=== PATIENT | female | born 1935 | race Caucasian/White ===

== ENCOUNTER → 2016-07-15 | Outpatient (CLI) | payer MEDICARE | END | disposition home or self-care (01) | LOC: GMAM 12:25 | PROVIDERS: ATTEND Family Medicine | DX: E53.8 Deficiency of other specified B group vitamins (principal); E04.1 Nontoxic single thyroid nodule; R31.21 Asymptomatic microscopic hematuria ==

== ENCOUNTER → 2016-09-16 | Outpatient (CLI) | payer MEDICARE ==
--- NOTE | 2016-09-19 11:26 | US ---
EXAM DESCRIPTION: Ultrasound thyroid CLINICAL HISTORY: THYROID NODULE COMPARISON: February 16, 2011 TECHNIQUE: Sonographic images of the thyroid are obtained. FINDINGS: Right lobe thyroid measures 3.3 x 1.4 x 1.6 cm. The primarily cystic 1.2 cm nodule in the right lobe seen on previous exam is not identified on today's exam. The isthmus measures 1.9 mm. The left lobe measures 3.3 x 1.4 x 1.3 cm. There is a 5 x 3 x 4 mm well-circumscribed anechoic cyst of the midpole left lobe thyroid. This was not seen on previous exam. The hyperechoic solid nodule in the left lobe seen on previous exam is not identified on today's exam. IMPRESSION: Selene millimeters cystic lesion seen in the right lobe of the thyroid on previous exam is presumed resolved and not seen on today's exam. Small simple cyst of the left lobe thyroid is seen on today's exam. No further follow-up of this finding is recommended. Electronically signed by: Theodore Lomas MD 09/19/2016 11:25 AM CDT
== END ==
LOC: US 10:51
PROVIDERS: ATTEND Family Medicine
DX: E04.1 Nontoxic single thyroid nodule (principal)

== ENCOUNTER → 2017-02-02 | Outpatient (CLI) | payer MEDICARE | END | disposition home or self-care (01) | LOC: MAMMO 10:14 | PROVIDERS: ATTEND Family Medicine | DX: Z12.31 Encounter for screening mammogram for malignant neoplasm of breast (principal) | CPT/HCPCS: 77063; G0202 ==

== ENCOUNTER → 2017-03-28 | Outpatient (CLI) | payer MEDICARE | LOC: GMAM 09:36 | PROVIDERS: ATTEND Family Medicine | DX: E04.1 Nontoxic single thyroid nodule (principal); E53.8 Deficiency of other specified B group vitamins; E21.0 Primary hyperparathyroidism ==

== ENCOUNTER → 2017-04-21 | Outpatient (CLI) | payer MEDICARE | LOC: LAB.O 10:29 | PROVIDERS: ATTEND Family Medicine | DX: E55.9 Vitamin D deficiency, unspecified (principal) ==

== ENCOUNTER → 2017-10-23 | Outpatient (CLI) | payer MEDICARE | LOC: GMAM 09:10 | PROVIDERS: ATTEND Family Medicine | DX: E04.1 Nontoxic single thyroid nodule (principal); E53.8 Deficiency of other specified B group vitamins; E21.0 Primary hyperparathyroidism ==

== ENCOUNTER → 2017-11-01 | Outpatient (CLI) | payer MEDICARE ==
--- NOTE | 2017-11-01 15:55 | MRI ---
EXAM DESCRIPTION: Knee,Left: MRI. CLINICAL HISTORY: KNEE PAIN COMPARISON: None. TECHNIQUE: Multiplanar, high-field MRI, multiple sequences, without contrast: Left knee. FINDINGS: Increased signal in the posterior horn medial meniscus. Linear cartilaginous and subchondral defect in the anterior medial femoral condyle. Smaller subchondral signal abnormality more posteriorly and medially in the medial tibial plateau. Chondromalacia in the lateral compartment. Small effusions medial and lateral. Minimal fluid posterior medial soft tissues. Normal signal in the ACL. Laxity and intermediate signal in the PCL superior segment inserting on the posterior femur. Medial collateral ligament and elements of the lateral collateral ligament complex are unremarkable. Normal signal in the distal iliotibial band. Minimal suprapatellar effusion. Intermediate/bright signal in the distal quadriceps tendon. Edema anterior to the patellar tendon and patellar insertion on the tibia. Medial and lateral skin patellar soft tissue restraints are unremarkable. IMPRESSION: 1. Grade 3 osteochondral lesion on the medial tibial plateau left knee. Grade 3-4 osteochondral lesion more anteriorly and anterolaterally in the medial femoral condyle. Minimal degeneration posterior horn medial meniscus. Medial compartment effusion. Effusion also on the lateral compartment. Mild chondromalacia. 2. Degeneration versus mild sprain of the femoral segment of the posterior cruciate ligament. Small posterior medial Kapoor cyst. 3. Minimal suprapatellar effusion. Degenerative signal versus mild strain in the distal quadriceps tendon. Prepatellar bursitis and soft tissue edema anterior to the patellar tendon insertion on the tibia. Electronically signed by: Raul Josue MD 11/01/2017 3:53 PM CDT
== END ==
LOC: MRI 10:00
PROVIDERS: ATTEND Family Medicine
DX: M95.8 Other specified acquired deformities of musculoskeletal system (principal); M71.22 Synovial cyst of popliteal space [Baker], left knee; M25.462 Effusion, left knee; M70.52 Other bursitis of knee, left knee

== ENCOUNTER → 2018-03-21 | Outpatient (CLI) | payer MEDICARE | LOC: GMAM 16:53 | PROVIDERS: ATTEND Family Medicine | DX: E53.8 Deficiency of other specified B group vitamins (principal); E21.0 Primary hyperparathyroidism; E55.9 Vitamin D deficiency, unspecified; I10 Essential (primary) hypertension ==

== ENCOUNTER → 2018-03-26 | Outpatient (CLI) | payer MEDICARE ==
--- NOTE | 2018-03-27 15:08 | MAM ---
EXAM DESCRIPTION: 3D Screening BILATERAL : Digital Mammography. CLINICAL HISTORY: 82 years Female SCREENING . No complaints. No personal history of breast cancer. Mother with breast cancer. Lifetime risk of developing breast cancer (Tyrer-Cuzick model)(%): . 5.6. COMPARISON: Digital screening 3-D breast tomosynthesis bilaterally 02/02/2017. TECHNIQUE: Bilateral CC and MLO projection full-field images, digital tomosynthesis mammographic technique. Bilateral digital 2-D full-field MLO images. CAD not available for tomosynthesis or 2-D images. FINDINGS: The breast parenchymal density pattern is: Scattered areas of fibroglandular density. No skin thickening or nipple retraction. Bilateral solitary microcalcifications. Bilateral vascular calcifications. No new focal, stellate mass or density, focal asymmetry , and no suspicious microcalcifications bilaterally. Stable mammograms compared to prior study. IMPRESSION: Benign exam. BIRAD CATEGORY: 2 BENIGN FINDINGS. RECOMMENDATIONS: FOLLOW UP: Routine digital bilateral mammographic screening, one year interval from March 2018. Written communication explaining the IMPRESSION and follow-up, will be mailed to the patient and referring health care provider. According to the [employer], yearly mammograms are recommended starting at age 40 and continuing as long as a woman is in good health. Any breast change noted on a breast self-exam should be reported promptly to the patient's healthcare provider. Breast MRI is recommended for women with an approximately 20-25% or greater lifetime risk of breast cancer, including women with a strong family history of breast or ovarian cancer and women who have been treated for Hodgkin's disease. A negative mammographic report should not delay tissue diagnosis in patients with significant clinical history or physical findings. Extremely dense breast tissue limits the sensitivity of digital mammography. 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
== END ==
LOC: MAMMO 10:30
PROVIDERS: ATTEND Family Medicine
DX: Z12.31 Encounter for screening mammogram for malignant neoplasm of breast (principal)

== ENCOUNTER → 2018-07-27 | Outpatient (CLI) | payer MEDICARE | LOC: MRI 11:00 | PROVIDERS: ATTEND Family Medicine | DX: M51.16 Intervertebral disc disorders with radiculopathy, lumbar region (principal) ==

== ENCOUNTER → 2018-08-01 | Outpatient (CLI) | payer MEDICARE ==
--- NOTE | 2018-08-01 11:00 | MRI ---
MRI right hip without contrast INDICATION: Hip pain NOS TECHNIQUE: Noncontrast MR imaging right hip FINDINGS: Tendinopathy thinning and mild adjacent edema and prominent vascularity proximal right hamstring tendons. No rupture or distal retraction. No acute muscle injury. No fracture or osteonecrosis. Mild bilateral greater trochanteric bursal edema. No active sacroiliitis. Mild labral degeneration right hip. Interstitial tendinopathy and low-grade partial tear gluteus minimus tendon on the sagittal fat-suppressed images. IMPRESSION: Bilateral greater trochanteric bursal edema mild Mild interstitial partial tear and tendinosis right gluteus minimus No fracture or osteonecrosis Tendinopathy and thinning proximal right hamstring tendons without rupture or retraction Electronically signed by: Jarret Barrios MD 08/01/2018 10:57 AM CDT
== END ==
LOC: MRI 09:00
PROVIDERS: ATTEND Family Medicine
DX: S76.011A Strain of muscle, fascia and tendon of right hip, initial encounter (principal); M76.891 Other specified enthesopathies of right lower limb, excluding foot

== ENCOUNTER → 2018-09-27 | Outpatient (CLI) | payer MEDICARE | LOC: GMAM 10:57 | PROVIDERS: ATTEND Family Medicine | DX: E53.8 Deficiency of other specified B group vitamins (principal); E04.1 Nontoxic single thyroid nodule; I10 Essential (primary) hypertension; E21.0 Primary hyperparathyroidism; E55.9 Vitamin D deficiency, unspecified ==

== ENCOUNTER → 2019-03-03 | Outpatient (CLI) | payer MEDICARE | LOC: LAB.O 17:16 | PROVIDERS: ATTEND Family Medicine | DX: J18.1 Lobar pneumonia, unspecified organism (principal) ==

== ENCOUNTER → 2019-04-17 | Outpatient (CLI) | payer MEDICARE | DX: Z12.31 Encounter for screening mammogram for malignant neoplasm of breast (principal) ==

== ENCOUNTER → 2019-06-19 | Outpatient (CLI) | payer MEDICARE ==
--- NOTE | 2019-06-20 15:55 | MAM ---
EXAM DESCRIPTION: 3D Diagnostic, Bilateral (accession [id number]), Breast,Left (accession [id number]): Ultrasound CLINICAL HISTORY: 83 yearsFemaleABNORMAL MAMMO . Focal asymmetry left breast COMPARISON: Bilateral screening digital breast tomosynthesis April 16. TECHNIQUE: Bilateral LM projection full-field images, digital tomosynthesis technique. Bilateral 2-D digital full-field images: LM projection. CAD available for 2-D images.. Transcutaneous scanning of the left breast utilizing villafana-scale and Doppler modes. Scanning performed by the english and reading instructor ; observation by Dr. Josue. FINDINGS: The breast parenchymal density pattern is: Heterogeneously dense breast tissue, which may obscure small masses. No skin thickening or nipple retraction focal asymmetry again noted in the inferior breast posteriorly near the chest wall at the 6:00 position. Not as distinct as on the prior screening study No new focal, stellate mass or density, focal asymmetry , and no suspicious microcalcifications left breast. Ultrasound: Scanning of the inferior left breast. Mixture of fibroglandular and fatty tissues. No dominant solid mass, no distinct cyst, no fluid collection, and no large calcifications. No overlying skin changes. IMPRESSION: Benign exam. BIRAD CATEGORY: 2 BENIGN FINDINGS. RECOMMENDATIONS: FOLLOW UP: Return to routine digital bilateral mammographic screening, one year interval from April 2019. Written communication explaining the IMPRESSION and follow-up, will be mailed to the patient and referring health care provider. The FINDINGS and the FOLLOW-UP plan were reviewed in person with the patient after the examination. According to the [employer], yearly mammograms are recommended starting at age 40 and continuing as long as a woman is in good health. Any breast change noted on a breast self-exam should be reported promptly to the patient's healthcare provider. Breast MRI is recommended for women with an approximately 20-25% or greater lifetime risk of breast cancer, including women with a strong family history of breast or ovarian cancer and women who have been treated for Hodgkin's disease. A negative mammographic report should not delay tissue diagnosis in patients with significant clinical history or physical findings. Extremely dense breast tissue limits the sensitivity of digital mammography. Electronically signed by: Raul Josue MD 06/20/2019 3:53 PM CDT
== END ==
LOC: MAMMO 11:19
PROVIDERS: ATTEND Family Medicine
DX: R92.2 Inconclusive mammogram (principal)
CPT/HCPCS: 76641; 77066; G0279

== ENCOUNTER → 2019-08-02 | Outpatient (CLI) | payer MEDICARE ==
--- NOTE | 2019-08-05 09:52 | CT ---
EXAM DESCRIPTION: Chest w/Contrast CLINICAL HISTORY: 83 years Female, SOLITARY PULMONARY NODULE COMPARISON: CT abdomen pelvis August 23, 2013. TECHNIQUE: Noncontrast multidetector CT imaging of the thorax was performed. Multiplanar reconstructions were generated. This exam was performed according to our departmental dose-optimization program which includes automated exposure control, adjustment of the mA and/or kV according to patient size and/or use of iterative reconstruction technique. FINDINGS: Several triangular-shaped subpleural and fissural pulmonary nodules are present in shape and most consistent with intrapulmonary lymph nodes measuring up to 4 mm. No concerning solid pulmonary nodules are present. There is an area of scarlike opacity within the anterior basilar segment of the right lower lobe that is unchanged in appearance from 2014. No further imaging follow-up is recommended for this finding. There are several areas of subtle acinar-type groundglass opacity that are subpleural distribution and basilar predominant. The largest confluent area measures 0.7 cm seen on axial series 4 image 88. No volume occupying consolidations are present. Mildly enlarged 1.1 cm right hilar lymph node (series 4 image 55). No mediastinal lymphadenopathy. The heart size is normal. The great vessels are normal in caliber. No gross pulmonary artery filling defects are present. The visualized structures of the upper abdomen are unremarkable in appearance. Remote surgical changes of the right humerus. IMPRESSION: Multiple subsolid bilateral groundglass pulmonary nodules within the peripheral subpleural location of the basilar lungs. This finding is nonspecific and can represent subacute inflammatory and/or infectious disease. This appearance is not typical of COVID although within the differential. Atypical adenomatous hyperplasia is thought to be less likely. Follow-up CT recommended in 3-6 months without contrast. Isolated 1.1 cm right hilar lymph node is likely related to the inflammatory lung process. Attention on follow-up imaging. Electronically signed by: Donta Lopez MD 08/05/2019 9:46 AM CDT
== END ==
LOC: CT 10:09
PROVIDERS: ATTEND Family Medicine
DX: R91.8 Other nonspecific abnormal finding of lung field (principal); I10 Essential (primary) hypertension

== ENCOUNTER → 2019-08-05 | Outpatient (CLI) | payer MEDICARE ==
--- NOTE | 2019-08-05 14:57 | US ---
EXAM DESCRIPTION: Venous,Lower Extremity RT: ULTRASOUND. CLINICAL HISTORY: LOCALIZED EDEMA COMPARISON: None Available. TECHNIQUE: Stroud-scale and doppler sonographic evaluation of the deep venous system of the right lower extremity. FINDINGS: Doppler evaluation shows normal color flow and normal phasicity and augmentation of the right common femoral vein, femoral vein, popliteal vein, greater saphenous vein, junction with the CFV. Also normal color flow and normal phasicity and augmentation of the peroneal, anterior and posterior tibial vein. The right lower extremity deep veins were completely compressible; normal occlusion with transducer pressure. Stroud-scale survey showed no echogenic thrombus within these veins. IMPRESSION: 1. Duplex ultrasound evaluation of the right lower extremity deep venous system showing no evidence of thrombosis. Electronically signed by: Raul Josue MD 08/05/2019 2:55 PM CDT
== END ==
LOC: US 10:00
PROVIDERS: ATTEND Family Medicine
DX: R60.0 Localized edema (principal)

== ENCOUNTER → 2019-12-12 | Outpatient (CLI) | payer MEDICARE | LOC: GMAM 14:20 | PROVIDERS: ATTEND Family Medicine | DX: E53.8 Deficiency of other specified B group vitamins (principal); E55.9 Vitamin D deficiency, unspecified; I10 Essential (primary) hypertension ==

== ENCOUNTER → 2019-12-18 | Outpatient (CLI) | payer MEDICARE ==
--- NOTE | 2019-12-18 14:27 | CT ---
EXAM DESCRIPTION: Chest w/o Contrast CLINICAL HISTORY: 84 years, Female, SOLITARY PULMONARY NODULE COMPARISON: Previous CT chest August 02, 2019 TECHNIQUE: Thin-section noncontrast axial CT images are obtained according to our protocol. Reconstructed MPR images are created and reviewed as well. FINDINGS: Lungs: Previous study showed patchy groundglass densities in both lower lobes. Findings and left lower lobe have cleared since the previous exam. No enlarging groundglass nodule to suggest a neoplastic process in the left lower lobe. Small intrapulmonary lymph node is seen on the right in the region of the major fissure near the level of the right pulmonary hilum. This is unchanged. Small subpleural nodule in the medial basal right lower lobe is also consistent with intrapulmonary nodule. Subchondral discoid atelectasis and linear scarring is seen in the medial basal segment right lower lobe with thin-walled circular cyst or cavitary lesion chronic in appearance in the anterior or lateral basal segment right lower lobe. This is unchanged compared to previous study. Some groundglass densities in the periphery of the right lower lobe seen on the previous exam have cleared. Overall findings appear improved. Minimal scarring in the medial right middle lobe and in the inferior lingula.. Right apical pleural-parenchymal scarring. Subpleural linear scarring in the right lower lobe. No worrisome pulmonary mass or nodule. Mediastinum: Lymph nodes are normal in size. Normal vascular contours. Heart size is normal with no pericardial effusion. Mild to moderate coronary arterial calcification. Chest wall/axilla: No mass or adenopathy. Breast tissue appears symmetrical. Lower neck/supraclavicular: No mass or adenopathy. Normal thyroid gland. Upper abdomen: Small spleen or splenosis in the left upper quadrant. Otherwise unremarkable upper abdominal viscera. Coronal and sagittal reformatted images confirm the findings. IMPRESSION: Improved appearance of the lungs with clearance of ground glass infiltrates since previous study. Scattered areas of fibrotic scarring in the right and left lungs. This exam was performed according to our departmental dose-optimization program, which includes automated exposure control, adjustment of the mA and/or kV according to patient size and/or use of iterative reconstruction technique. Total DLP equals 252.26 mGycm. 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
== END ==
LOC: CT 09:00
PROVIDERS: ATTEND Family Medicine
DX: R91.1 Solitary pulmonary nodule (principal); J98.4 Other disorders of lung